=== PATIENT | female | born 1940 | race Caucasian/White ===

== ENCOUNTER → 2016-08-23 | Day surgery (SDC) | payer OTHER ==
--- NOTE | 2016-08-24 15:00 | PATH ---
Surgical Pathology Report Patient Name: JENNIFER CHANDLER [facility]. Rec. #: [id number] /Age/Gender: 1940 (Age: 76) / F Account: [id number] Location: [facility] Taken: 08/23/2016 Received: 08/23/2016 Reported: 08/24/2016 Physicians: Lam Barron M.D. Specimen(s) Received RIGHT BREAST SPECIMEN WITH MASS Clinical History Nonpalpable lesion Suspicious Final Diagnosis RIGHT BREAST MASS, BIOPSY: WELL TO MODERATELY DIFFERENTIATED INVASIVE DUCTAL CARCINOMA, MEASURING 0.8 CM IN LENGTH MEASURED ON THE SLIDE, WITH ASSOCIATED CALCIFICATION. Results of Estrogen Receptor (ER) and Progesterone Receptor (PA) studies performed at [facility] are as follows: ER (clone [id number] mouse monoclonal antibody by [employer]): 100% nuclear staining with strong intensity (Positive). PA (clone16 mouse monoclonal antibody by [employer]) : 0% nuclear staining (Negative). Results of Her2 and Ki-67 studies will be reported separately in an addendum. Positive and negative controls (internal if applicable) show appropriate results. Formalin fixation and cold ischemic times are within current ASCO/CAP recommendations for ER, PA and Her2 testing. Comment: Immunohistochemical stains for smooth muscle myosin heavy chain and p63 performed and interpreted at [facility] show loss of the myoepithelial cell layer in the invasive carcinoma. This case was discussed with NOHEMI Mistry of Dr. Erasto Brown's office on August 24, 2016. Also see prior specimen [id number], and prior Slide Review [id number]. Electronically Signed Tobin Spear M.D. Addendum Reported: 08/27/2016 Addendum Diagnosis Results of Her2 (IHC) & Ki-67 studies performed at [place], [place] ([id number]) are as follows: Her2 IHC (EP3 from [employer], formerly known as [id number], using [employer] Polymer Refine detection kit): 1+ NEGATIVE Ki-67: up to 20% (Intermediate proliferative index) Positive and negative controls (internal if applicable) show appropriate results. Tobin Spear M.D. Gross Description Received in formalin, labeled "right breast with mass," is a 2.5 x 2.3 x 0.3 cm aggregate of multiple larios-yellow, irregular to cylindrical portions of fibroadipose tissue. The formalin and filtered and the specimen is entirely submitted in one cassette. Time to formalin fixation: 5 minutes Total formalin fixation time: Approximately 9 hours. 08/23/201608/23/2016
== END | disposition home or self-care (01) ==
LOC: FMAMMOTONE 08:25
PROVIDERS: ATTEND Surgery Surgical Oncology
PROC: 0HBT3ZX Excision of Right Breast, Percutaneous Approach, Diagnostic (ICD-10-PCS; principal; 2016-08-23)
DX: C50.411 Malignant neoplasm of upper-outer quadrant of right female breast (principal); Z17.0 Estrogen receptor positive status [ER+]; Z85.3 Personal history of malignant neoplasm of breast
CPT/HCPCS: 19081; 88305-TC; 88341-TC; 88342-TC; A4648

== ENCOUNTER 2016-09-06 13:48 | Inpatient (IN) | payer OTHER ==
--- NOTE | 2016-09-03 14:40 | HP ---
Admitting History and Physical - Primary Care Physician PCP: Erasto Brown - Admission Chief Complaint: Recurrent right breast cancer History of Present Illness: 76 year old postmenapausal female S/P right breast wide excision sentenel node biopsy and intraop Radiation TARGIT US TRIAL. 07/2014. She had mammogram 07/2016 showing suspicious findings Right breast upper inner quadrant there were some findings on US which did not corelate with mammogram. Right breast core biopsy showed invasive ductal carcinoma. Mri breast 08/2016 showed newly diagnosed Right breast cancer and clip at 10:00. left breast negative. History Source: Patient Limitations to Obtaining History: No Limitations - Past Medical History COURT STENOGRAPHER: Yes: Migraine Cardiovascular: Yes: Hyperlipdemia Gastrointestinal: Yes: Diverticulosis, Other (Gastric ulcer with history of being treated for H. 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 - Past Surgical History Past Surgical History: Yes: Appendectomy, Tonsillectomy Additional Past Surgical History: catarct endometriosiss and fibroids Right breast wide excision sentenel node bx intraop RT/arimidex 07/2014 - Smoking History Smoking history: Former smoker Have you smoked in the past 12 months: No If you are a former smoker, when did you quit?: EARLY 68 - Alcohol/Substance Use Hx Alcohol Use: Yes (socially) Home Medications - Allergies Allergies/Adverse Reactions: Allergies Allergy/AdvReac Type Severity Reaction Status Date / Time Iodine and Iodide Containing Allergy Verified 08/05/14 09:12 Produc aspirin AdvReac Verified 08/05/14 09:13 - Home Medications Home Medications: Ambulatory Orders Acetaminophen/Caffeine/Butalb [Fioricet -] 1 tab PO Q4H PRN 08/06/14 Allopurinol [Zyloprim -] 200 mg PO HS 08/06/14 Atorvastatin Ca [Lipitor] 40 mg PO HS 08/06/14 Colchicine [Mitigare] 0.6 mg PO HS 08/06/14 Divalproex [Depakote -] 500 mg PO BID 08/06/14 Propranolol HCl [Inderal Xl] 80 mg PO BID 08/06/14 Omeprazole [Prilosec (RX)] 20 mg PO DAILY PRN 08/10/14 Oxycodone HCl/Acetaminophen [Percocet 5/325 -] 1 tab PO Q4H PRN #30 tablet 08/10 Pseudoephedrine HCl 30 mg PO DAILY 08/10/14 Family Disease History - Family Disease History Family Disease History: Other: Father (ulcer), Mother (early alzheimer and ? breast ca) Physical Examination Constitutional: Yes: Well Nourished, No Distress Breast(s): Yes: Other (Excellent cosmetic results from right breast wide excision . slight finding right 12:00 about 1 cm. No palpable adenopathy. Left breast negative) Problem List - Problems (1) Recurrent cancer of right breast Code(s): C50.911 - MALIGNANT NEOPLASM OF UNSP SITE OF RIGHT FEMALE BREAST Assessment/Plan Right total mastecetomy sentenel node biopsy possible axillary node dissection lymphoscintogram and reconstruction
[2016-09-04 10:30] VITALS: BMI 19.3
[2016-09-06] MEDS ORDERED: MEPIVACAINE HCL/PF 15 MG/ML ML ONE (14:20)
[2016-09-06] MEDS ORDERED: MIDAZOLAM HCL 2 MG/2 ML SINGLE DOSE VIAL ONE (14:20)
[2016-09-06] MEDS ORDERED: ROPIVACAINE HCL 0.5% 30ML VIAL ONE (14:20)
[2016-09-06] MEDS ORDERED: DEXAMETHASONE SOD PHOSPHATE/PF 10 MG/ML SDV ONE (14:21)
[2016-09-06] MEDS ORDERED: ZOLPIDEM TARTRATE 5 MG TABLET PO PRN (14:51)
[2016-09-06] MEDS ORDERED: ONDANSETRON 4 MG/2 ML VIAL IVPB PRN (14:51)
[2016-09-06] MEDS ORDERED: ACETAMINOPHEN 325 MG TABLET (FP) PO PRN (14:51)
[2016-09-06] MEDS ORDERED: ACETAMINOPHEN/CAFFEINE/BUTALBITAL 1 TAB PO PRN (14:53)
[2016-09-06] MEDS ORDERED: PROMETHAZINE HCL 25 MG/1 ML VIAL IVPB PRN (16:00)
[2016-09-06] MEDS ORDERED: HYDROmorphone *PCA* 10MG/50ML DISP.SYRIN PCA SCH (16:00)
[2016-09-06] MEDS ORDERED: DEXAMETHASONE SOD PHOSPHATE 4 MG/1 ML VIAL IVPUSH PRN (16:00)
[2016-09-06] MEDS ORDERED: HYDROmorphone *PCA* 10MG/50ML DISP.SYRIN PCA ONE ×2 (16:36→18:51)
[2016-09-06] MEDS: ANASTROZOLE 1 MG TABLET PO SCH (22:20)
[2016-09-06] MEDS: CEFAZOLIN 1 GM/D5W 50 ML IVPB SCH (22:20)
[2016-09-06] MEDS: DIVALPROEX SODIUM 250 MG TABLET E.C. (FP) PO SCH (22:21)
[2016-09-06] MEDS: ALLOPURINOL 100 MG TABLET (FP) PO SCH (22:21)
[2016-09-06] MEDS: PROPRANOLOL HCL 40 MG TABLET PO SCH (22:26)
[2016-09-06] MEDS: ATORVASTATIN CA 40 MG TABLET (FP) PO SCH (22:27)
[2016-09-06] MEDS: DEXTROSE 5%-0.45% SALINE 1,000 ML IV SCH (22:27)
[2016-09-07] MEDS: CEFAZOLIN 1 GM/D5W 50 ML IVPB SCH ×4 (02:54→21:00)
[2016-09-07] MEDS: LEVOTHYROXINE NA 25 MCG TABLET (FP) PO SCH (06:49)
[2016-09-07] MEDS: HEPARIN NA (PORCINE) 5,000 UNITS/ML 1ML VIAL SQ SCH ×3 (08:20→23:43)
[2016-09-07 08:57] LABS: MCH 33.5 pg (25.7-33.7); MEAN CELL VOLUME 104.7 fl (80-96); MEAN PLT VOLUME 9.6 fl (7.5-11.1); PLATELET COUNT 269 K/MM3 (134-434); RDW 14.9 % (11.6-15.6); WHITE BLOOD COUNT 17.9 K/mm3 (4.0-10.0)
[2016-09-07] MEDS: DIVALPROEX SODIUM 250 MG TABLET E.C. (FP) PO SCH ×3 (09:30→23:43)
[2016-09-07] MEDS: PROPRANOLOL HCL 40 MG TABLET PO SCH ×2 (09:41→23:44)
--- NOTE | 2016-09-07 09:44 | PN ---
Progress Note, Physician Chief Complaint: Recurrent right breast cancer S/P right total mastectomy tissue project development coordinator and alloderm History of Present Illness: patient is eating using MANAGER OF PROGRAM for pain worse in axilla, some bloody leakage around drain but functioning well. will change to tylenol # 3 this afternoon. She will decide if she wants to go home later or tomorrow depending on pain - Current Medication List Current Medications: Active Medications Acetaminophen (Tylenol -) 650 mg PO Q4H PRN PRN Reason: FEVER Acetaminophen/Butalbital/Caffeine (Fioricet -) 1 tablet PO Q4H PRN PRN Reason: HEADACHE Allopurinol (Zyloprim -) 200 mg PO HS [facility] Last Admin: 09/06/16 22:21 Dose: 200 mg Anastrozole (Arimidex -) 1 mg PO HS [facility] Last Admin: 09/06/16 22:20 Dose: 1 mg Atorvastatin Calcium (Lipitor -) 40 mg PO HS [facility] Last Admin: 09/06/16 22:27 Dose: Not Given Divalproex Sodium (Depakote -) 250 mg PO BID [facility] Last Admin: 09/07/16 09:30 Dose: 250 mg Heparin Sodium (Porcine) (Heparin -) 5,000 unit SQ BID [facility] Last Admin: 09/07/16 08:20 Dose: 5,000 unit Hydromorphone HCl (Dilaudid Insulation Board Back Tender -) 10 mg MANAGER OF PROGRAM MANAGER OF PROGRAM JERICHO PRN Reason: Protocol Stop: 09/13/16 16:01 Last Admin: 09/06/16 22:27 Dose: 10 mg Cefazolin Sodium (Ancef 1 Gm Premixed Ivpb -) 50 mls @ 100 mls/hr IVPB Q6H-IV [facility] Stop: 09/13/16 15:29 Last Admin: 09/07/16 09:30 Dose: 100 mls/hr Dextrose/Sodium Chloride (D5-1/2ns -) 1,000 mls @ 100 mls/hr IV ASDIR [facility] Last Admin: 09/06/16 22:27 Dose: 100 mls/hr Levothyroxine Sodium (Synthroid -) 25 mcg PO ACBK [facility] Last Admin: 09/07/16 06:49 Dose: Not Given Ondansetron HCl (Zofran Injection) 4 mg IVPB Q6H PRN PRN Reason: NAUSEA AND/OR VOMITING Promethazine HCl (Phenergan Injection -) 12.5 mg IVPB Q6H PRN PRN Reason: NAUSEA AND/OR VOMITING Propranolol HCl (Inderal -) 40 mg PO HS [facility] Last Admin: 09/06/16 22:26 Dose: Not Given Propranolol HCl (Inderal -) 80 mg PO DAILY [facility] Zolpidem Tartrate (Ambien -) 5 mg PO HS PRN PRN Reason: Insomnia - Objective Vital Signs: Vital Signs Temperature 98.4 F 09/07/16 06:26 Pulse Rate 74 09/07/16 06:26 Respiratory Rate 19 09/07/16 08:13 Blood Pressure 127/68 09/07/16 06:26 O2 Sat by Pulse Oximetry (%) 95 09/07/16 08:13 Constitutional: Yes: Well Nourished, No Distress Breast(s): Yes: Other (Flap viable some echymosis incision intact leakage around DANIELLE drain but functiong well dressing changed) Labs: CBC, BMP 09/07/16 07:45 Problem List - Problems (1) Recurrent cancer of right breast Code(s): C50.911 - MALIGNANT NEOPLASM OF UNSP SITE OF RIGHT FEMALE BREAST Assessment/Plan continue IV antibiotics spirometry MANAGER OF PROGRAM to be discontinued this afternoon and start tylenol #3 plan for discharge this afternoon or tomorrow morning
--- NOTE | 2016-09-07 14:50 | PN ---
Progress Note (short form) - Note Progress Note: ANESTHESIA POST-OP CHECK 76F s/p right mastectomy under general anesthesia POD #1. No acute complaints. Tolerating PO, ambulating, voiding, pain 2/10 and tolerable. Denies N/V. Vital Signs Temperature 98.1 F 09/07/16 09:42 Pulse Rate 82 09/07/16 09:42 Respiratory Rate 18 09/07/16 09:42 Blood Pressure 132/57 09/07/16 09:42 O2 Sat by Pulse Oximetry (%) 95 09/07/16 08:13 Active Medications Acetaminophen (Tylenol -) 650 mg PO Q4H PRN PRN Reason: FEVER Acetaminophen/Butalbital/Caffeine (Fioricet -) 1 tablet PO Q4H PRN PRN Reason: HEADACHE Allopurinol (Zyloprim -) 200 mg PO HS [facility] Last Admin: 09/06/16 22:21 Dose: 200 mg Anastrozole (Arimidex -) 1 mg PO HS [facility] Last Admin: 09/06/16 22:20 Dose: 1 mg Atorvastatin Calcium (Lipitor -) 40 mg PO HS [facility] Last Admin: 09/06/16 22:27 Dose: Not Given Divalproex Sodium (Depakote -) 250 mg PO BID [facility] Last Admin: 09/07/16 09:41 Dose: Not Given Heparin Sodium (Porcine) (Heparin -) 5,000 unit SQ BID [facility] Last Admin: 09/07/16 09:41 Dose: Not Given Hydromorphone HCl (Dilaudid Thread Winder -) 10 mg SKIN CARE SPECIALIST SKIN CARE SPECIALIST JERICHO PRN Reason: Protocol Stop: 09/13/16 16:01 Last Admin: 09/06/16 22:27 Dose: 10 mg Cefazolin Sodium (Ancef 1 Gm Premixed Ivpb -) 50 mls @ 100 mls/hr IVPB Q6H-IV [facility] Stop: 09/13/16 15:29 Last Admin: 09/07/16 09:30 Dose: 100 mls/hr Dextrose/Sodium Chloride (D5-1/2ns -) 1,000 mls @ 100 mls/hr IV ASDIR [facility] Last Admin: 09/06/16 22:27 Dose: 100 mls/hr Levothyroxine Sodium (Synthroid -) 25 mcg PO ACBK [facility] Last Admin: 09/07/16 06:49 Dose: Not Given Ondansetron HCl (Zofran Injection) 4 mg IVPB Q6H PRN PRN Reason: NAUSEA AND/OR VOMITING Promethazine HCl (Phenergan Injection -) 12.5 mg IVPB Q6H PRN PRN Reason: NAUSEA AND/OR VOMITING Propranolol HCl (Inderal -) 40 mg PO HS [facility] Last Admin: 09/06/16 22:26 Dose: Not Given Propranolol HCl (Inderal -) 80 mg PO DAILY [facility] Last Admin: 09/07/16 09:41 Dose: Not Given Zolpidem Tartrate (Ambien -) 5 mg PO HS PRN PRN Reason: Insomnia Gen: awake alert No apparent anesthesia complications. Pain well controlled, discontinue SKIN CARE SPECIALIST, start oral analgesics. Continue managment as per primary team.
[2016-09-07] MEDS ORDERED: HYDROmorphone HCL CARPU-JECT 1 MG/1 ML DISP.SYRIN IVPB PRN ×2 (14:51→15:05)
[2016-09-07] MEDS: DEXTROSE 5%-0.45% SALINE 1,000 ML IV SCH (15:32)
[2016-09-07] MEDS ORDERED: ACETAMINOPHEN WITH CODEINE 300MG/30MG TABLET PO PRN (16:26)
[2016-09-07] MEDS: ACETAMINOPHEN WITH CODEINE 300MG/30MG TABLET PO PRN (19:41)
[2016-09-07 23:34] VITALS: BP 126/59; PULSE 82; TEMP 98.3
[2016-09-07] MEDS ORDERED: PT OWN MED DRAWER 7, Y5N ONE (23:40)
[2016-09-07] MEDS: ANASTROZOLE 1 MG TABLET PO SCH (23:43)
[2016-09-07] MEDS: ALLOPURINOL 100 MG TABLET (FP) PO SCH (23:45)
[2016-09-07] MEDS: ATORVASTATIN CA 40 MG TABLET (FP) PO SCH (23:45)
[2016-09-08] MEDS: CEFAZOLIN 1 GM/D5W 50 ML IVPB SCH ×3 (03:11→09:43)
[2016-09-08] MEDS: LEVOTHYROXINE NA 25 MCG TABLET (FP) PO SCH (06:16)
[2016-09-08] MEDS: ACETAMINOPHEN WITH CODEINE 300MG/30MG TABLET PO PRN (06:19)
--- NOTE | 2016-09-08 07:15 | OP ---
DATE OF OPERATION: 09/06/2016 SURGEON: Faiza Estes MD AUTOMOBILE BRAKES BONDER SURGEON: NOHEMI Carrillo PREOPERATIVE DIAGNOSES: 1. Acquired right chest wall deformity status post right mastectomy. 2. Personal history of breast carcinoma. POSTOPERATIVE DIAGNOSIS: 1. Acquired right chest wall deformity status post right mastectomy. 2. Personal history of breast carcinoma. PROCEDURE: 1. Immediate right breast reconstruction utilizing a median insertion of silicone tissue crystalizer tender. 2. Acellular dermal matrix reconstruction of breast. OPERATIVE INDICATION: The patient is a 76-year-old white female who was brought to the operating room by Dr. Faiza Brown for a right mastectomy and sentinel lymph node biopsy. This dictation will be under separate cover by Dr. Brown. PROCEDURE IN DETAIL: Upon completion of the mastectomy, the wound was copiously irrigated, and hemostasis was meticulously obtained. At this point, the pectoralis major muscle was encountered. It was elevated in the usual fashion with lighted retractor and electrocautery superiorly to the 2nd rib, medially to the sternal fibers, then down to the inframammary fold elevating the pectoralis major muscle. At this point, the AlloDerm was rehydrated and brought into the field on the back table and sutured using 3-0 Vicryl suture in a running fashion along the pectoralis major muscle down along the lateral mammary fold and then a 2nd suture was begun on the medial side. At this point, a tissue crystalizer tender of Natrelle style [id number] was chosen for the reconstruction. This was placed sterilely into the subpectoral suballoderm pocket and tacked into position using 3-0 chromic sutures in interrupted fashion. The remainder of the material was brought down over the bottom of the implant and sutured to the inframammary fold. At this point, 2 drains were brought out through separate stab wounds on the lateral portion of the breast, and then copious irrigation and hemostasis was again obtained. This was then advanced and closed upon itself closing the mastectomy scar across the middle of the chest wall with a transverse incision. This was accomplished using 3-0 PDS suture on the deep tissue, 3-0 in a deep dermal fashion, and 4-0 in a subcuticular fashion. All wounds were dressed sterilely with Mastisol, Steri-Strips, and a compressive dressing with a surgery bra. She tolerated the procedure well. She was awakened, extubated, and transferred to the recovery room in satisfactory condition. FAIZA ESTES M.D. SHANNAN/[id number]
[2016-09-08] MEDS ORDERED: PT OWN MED DRAWER 7, Y5N ONE (09:16)
[2016-09-08] MEDS: DIVALPROEX SODIUM 250 MG TABLET E.C. (FP) PO SCH (09:44)
[2016-09-08] MEDS: HEPARIN NA (PORCINE) 5,000 UNITS/ML 1ML VIAL SQ SCH (09:47)
[2016-09-08] MEDS: PROPRANOLOL HCL 40 MG TABLET PO SCH (09:48)
--- NOTE | 2016-09-08 11:09 | PN ---
Progress Note, Physician Chief Complaint: Recurrent right breast cancer History of Present Illness: The patient has a history of right breast cancer and underwent a partial mastectomy and RT abut 1 year ago. She developed a recurrence found on routine screening mammography requiring completion mastectomy which was performed on with pipe finisher reconstruction. She was admitted postoperatively for pain and wound management. - Current Medication List Current Medications: Active Medications Acetaminophen (Tylenol -) 650 mg PO Q4H PRN PRN Reason: FEVER Acetaminophen/Butalbital/Caffeine (Fioricet -) 1 tablet PO Q4H PRN PRN Reason: HEADACHE Acetaminophen/Codeine Phosphate (Tylenol # 3 -) 2 tab PO Q6H PRN PRN Reason: FEVER OR PAIN Last Admin: 09/08/16 06:19 Dose: 2 tab Acetaminophen/Codeine Phosphate (Tylenol # 3 -) 1 tab PO Q4H PRN PRN Reason: FEVER OR PAIN Allopurinol (Zyloprim -) 200 mg PO [facility] Last Admin: 09/07/16 23:45 Dose: 200 mg Anastrozole (Arimidex -) 1 mg PO [facility] Last Admin: 09/07/16 23:43 Dose: 1 mg Atorvastatin Calcium (Lipitor -) 40 mg PO HS [facility] Last Admin: 09/07/16 23:45 Dose: 40 mg Divalproex Sodium (Depakote -) 250 mg PO BID [facility] Last Admin: 09/08/16 09:44 Dose: Not Given Heparin Sodium (Porcine) (Heparin -) 5,000 unit SQ BID [facility] Last Admin: 09/08/16 09:47 Dose: 5,000 unit Hydromorphone HCl (Dilaudid Injection -) 0.5 mg IVPB Q4H PRN PRN Reason: PAIN LEVEL 6-10 Cefazolin Sodium (Ancef 1 Gm Premixed Ivpb -) 50 mls @ 100 mls/hr IVPB Q6H-IV [facility] Stop: 09/13/16 15:29 Last Admin: 09/08/16 09:43 Dose: 100 mls/hr Dextrose/Sodium Chloride (D5-1/2ns -) 1,000 mls @ 100 mls/hr IV ASDIR [facility] Last Admin: 09/07/16 15:32 Dose: Not Given Levothyroxine Sodium (Synthroid -) 25 mcg PO ACBK [facility] Last Admin: 09/08/16 06:16 Dose: Not Given Ondansetron HCl (Zofran Injection) 4 mg IVPB Q6H PRN PRN Reason: NAUSEA AND/OR VOMITING Promethazine HCl (Phenergan Injection -) 12.5 mg IVPB Q6H PRN PRN Reason: NAUSEA AND/OR VOMITING Propranolol HCl (Inderal -) 40 mg PO HS [facility] Last Admin: 09/07/16 23:44 Dose: 40 mg Propranolol HCl (Inderal -) 80 mg PO DAILY [facility] Last Admin: 09/08/16 09:48 Dose: Not Given Zolpidem Tartrate (Ambien -) 5 mg PO HS PRN PRN Reason: Insomnia - Objective Vital Signs: Vital Signs Temperature 98.3 F 09/07/16 23:00 Pulse Rate 82 09/07/16 23:00 Respiratory Rate 17 09/07/16 23:00 Blood Pressure 126/59 09/07/16 23:00 O2 Sat by Pulse Oximetry (%) 96 09/08/16 09:03 Constitutional: Yes: Well Nourished, No Distress, Calm Eyes: Yes: WNL HENT: Yes: WNL Neck: Yes: WNL Cardiovascular: Yes: Regular Rate and Rhythm Respiratory: Yes: Regular, CTA Bilaterally Gastrointestinal: Yes: Normal Bowel Sounds, Soft ...Rectal Exam: Yes: Deferred Genitourinary: Yes: WNL Breast(s): Yes: Other (Wounds clean, dry, and intact. Skin flaps warm and viable. Drains functioning well.) Musculoskeletal: Yes: WNL Extremities: Yes: WNL Integumentary: Yes: WNL Wound/Incision: Yes: Clean/Dry, Well Approximated Neurological: Yes: Alert, Oriented ...Motor Strength: WNL Psychiatric: Yes: WNL Labs: CBC, BMP 09/07/16 07:45 Problem List - Problems (1) Recurrent cancer of right breast Code(s): C50.911 - MALIGNANT NEOPLASM OF UNSP SITE OF RIGHT FEMALE BREAST (2) Breast cancer, right Assessment/Plan: The patient is doing well POD#2 s/p right breast mastectomy and pipe finisher reconstruction with alloderm. She is doing well with good pain control. Skin flaps are warm and viable. Drains functioning well. She is stable for discharge today. Home on cefadroxil antibiotics and vicodin for pain. Follow up in the office in 1 week. Keep compressive bra on day and night. No bath shower until drains removed. Code(s): C50.911 - MALIGNANT NEOPLASM OF UNSP SITE OF RIGHT FEMALE BREAST Qualifiers: Breast location: upper inner quadrant of breast Patient gender: female Qualified Code(s): C50.211 - Malignant neoplasm of upper-inner quadrant of right female breast
--- NOTE | 2016-09-08 11:12 | DS ---
Physical Examination Vital Signs: Vital Signs Temperature 98.3 F 09/07/16 23:00 Pulse Rate 82 09/07/16 23:00 Respiratory Rate 17 09/07/16 23:00 Blood Pressure 126/59 09/07/16 23:00 O2 Sat by Pulse Oximetry (%) 96 09/08/16 09:03 Constitutional: Yes: Well Nourished, No Distress, Calm Eyes: Yes: WNL HENT: Yes: WNL Neck: Yes: WNL Cardiovascular: Yes: Regular Rate and Rhythm Respiratory: Yes: Regular, CTA Bilaterally Gastrointestinal: Yes: Normal Bowel Sounds, Soft ...Rectal Exam: Yes: Deferred Renal/: Yes: WNL Breast(s): Yes: Other (Right breast wound clean, dry, and intact. Skin flaps warm and viable. Drians functioning well.) Musculoskeletal: Yes: WNL Extremities: Yes: WNL Wound/Incision: Yes: Clean/Dry, Well Approximated Neurological: Yes: Alert, Oriented ...Motor Strength: WNL Psychiatric: Yes: WNL Labs: CBC, BMP 09/07/16 07:45 Discharge Summary Reason For Visit: RIGHT BREAST CA Current Active Problems Recurrent cancer of right breast (Acute) Procedures: Principal: Right breast total mastectomy with sales manager reconstruction with alloderm Hospital Course: The patient was admitted postoperatively and had good pain control and ACUTE CARE CLINICAL NURSE SPECIALIST was stopped POD#1. She was doing well and her wounds were clean, dry, and intact and she was stable for discharge by POD#2. Condition: Good - Instructions Diet, Activity, Other Instructions: Post Operative Instructions - [facility] We hope your recovery will be uneventful. For those of you who have been given general anesthesia, there is a possibility you might have some lightheadedness and possibly nausea. It is important that each patient, especially those who have had general anesthesia, follow these instructions, please: 1. Do NOT operate a motor vehicle for 24 hours. 2. Do NOT drink any alcoholic beverages for 24 hours. 3. Do NOT take any sedatives, narcotics, or tranquilizers for 24 hours unless specifically ordered by your surgeon. 4. Do NOT undertake any strenuous exercise or outside activity for 24 hours unless specifically permitted by your surgeon. 5. Eat light foods that are easy to digest. If you have any problems with nausea and vomiting, lie down and rest. If it continues, call your surgeon. 6. Call your surgeon AT ONCE if you have problems with: a. Bleeding b. Urinating c. Excessive pain or drainage d. Numbness If any problems occur, call your physician first. If you cannot reach him/her, call the Ambulatory Surgery Unit at [phone], or the Emergency Room at . Follow up with Drs. Brown / Nino in 7 days. Medication: Vicodin E-S OR Percocet 1-2 tablets every 4-6 hrs as needed for 5-7 days. Wound Care: Keep wound dry and clean for 48 hours. You may remove the dressing after 48 hours and may shower. Keep steri-strips in place until follow-up appointment No heavy lifting or strenuous activities. BREAST SURGERY INSTRUCTIONS Farhan Brown M.D., TIERA Brown M.D., TIERA Oneill M.D., FACS 1. Please call the office at to make a follow up appointment with your surgeon. This number can be also used for any urgent issues you may have. 2. Call us immediately if any of the following occur: *Bleeding from the incision or drain site (a small amount is normal) *Fever or chills *Redness and worsening tenderness around the surgical site *Drainage of pus or fluid from the incision or drain site 3. You may change the surgical dressing two (2) days after your surgery, and may shower then. If you have drains, you may shower after they have been removed, until then take a sponge bath. 4. It is normal for there to be some bruising and tenderness around the surgical site, and the breast may also be firm in this area. 5. Please wear a comfortable bra (sports or surgical bra) all day and all night until your first follow-up visit with your surgeon. 6. The pain medicine you have been prescribed may make you constipated; make sure you drink plenty of water. You may use an over the counter laxative if needed. 7. You may resume your normal diet after surgery, although you may want to avoid rich foods for the first twenty-four (24) hours after surgery. Alcoholic drinks should be avoided while taking the prescribed pain medicine. 8. You may resume normal activities as long as there is no discomfort, but do not do upper body exercises until after your follow-up appointment. Do not lift anything heavier than a large phone book. You may resume driving once you have stopped taking the prescribed pain medicine and feel comfortable doing arm movements. WEAR BRA/NO SHOWER/ EMPTY AND RECORD DANIELLE OUTPUT TWICE DAILY/ CHANGE DRESSINGS WHEN SOILED Referrals: Erasto Brown MD [Staff Physician] - King Estes MD [Staff Physician] - Disposition: HOME - Home Medications Comprehensive Discharge Medication List: Ambulatory Orders Acetaminophen/Caffeine/Butalb [Fioricet -] 1 tab PO Q4H PRN 08/06/14 Allopurinol [Zyloprim -] 200 mg PO HS 08/06/14 Atorvastatin Ca [Lipitor] 40 mg PO HS 08/06/14 Anastrozole [Arimidex -] 1 mg PO HS 09/04/16 Divalproex [Depakote -] 250 mg PO BID 09/04/16 Levothyroxine [Synthroid -] 25 mcg PO HS 09/04/16 Propranolol HCl 40 mg PO HS 09/04/16 Propranolol HCl 80 mg PO DAILY 09/04/16 Acetaminophen W/ Codeine #3 [Tylenol # 3 -] 1 - 2 tab PO Q6H PRN #30 tablet MDD 6 09/07/16 Cefadroxil 500 mg PO BID #20 capsule 09/07/16
--- NOTE | 2016-09-10 15:28 | PATH ---
Surgical Pathology Report Patient Name: JENNIFER CHANDLER [facility]. Rec. #: [id number] /Age/Gender: 1940 (Age: 76) / F Account: [id number] Location: [facility] MED-SURG Taken: 09/06/2016 Received: 09/06/2016 Reported: 09/10/2016 Physicians: Erasto Brown M.D. Specimen(s) Received A: RIGHT BREAST MASTECTOMY B: RIGHT BREAST ANTERIOR MARGIN Clinical History Right recurrent invasive breast cancer Final Diagnosis A. breast, right, total mastectomy: Invasive ductal carcinoma, moderately differentiated, (tubule score: 3/3, nuclear grade 2/3, mitotic score 1/3; total [place] score 6/9), measurING 4 mm in greatest dimension, microscopically. Invasive carcinoma is present adjacent to/ in A background of dense hyalinizing fibrosis, compatible with recurrence of prior known invasive carcinoma (see report [id number]). Surgical margins are uninvolved by carcinoma; carcinoma is aT 6 mm FROM the closest anterior margin. See also specimen B for final anterior margin. Nipple and skin are uninvolved by carcinoma. No lymphovascular invasion is identified. Prior biopsy site changes are present. Pathologic stage (rptnm): rpt1b ypNx ( "pt" stage is based on size of invasive carcinoma (8 mm) in prior core biopsy D17). see also invasive carcinoma cancer case summary below. B. breast, right, anterior margin, excision: Benign fibroadipose tissue. Comments Breast Invasive Carcinoma: Surgical Pathology Cancer Case Summary Based on AJCC/UICC TNM, 7th edition Procedure _X_ Total mastectomy (including nipple and skin) Specimen Laterality _X_ Right Tumor Size: Size of Largest Invasive Carcinoma: 8 mm in prior core biopsy D17 Tumor Focality _X_ Single focus of invasive carcinoma Macroscopic and Microscopic Extent of Tumor Skin _X_ Invasive carcinoma does not invade into the dermis or epidermis Nipple _X_ carcinoma does not involve the nipple epidermis Ductal Carcinoma In Situ (DCIS) _X_ No DCIS is present Histologic Type of Invasive Carcinoma : _x_ invasive carcinoma of no special type (ductal, not otherwise specified) Histologic Grade: ([place] Histologic Score) Tubular Differentiation _X_ Score 3 Nuclear Pleomorphism _X_ Score 2 Mitotic Rate _X_ Score 1 Overall Grade _X_ Grade 2: scores of 6 or 7 (moderately differentiated) Margins _X_ Margins uninvolved by invasive carcinoma Distance from closest margin: 6 mm anterior margin in mastectomy specimen A. Final anterior margin B is negative for carcinoma. Lymph-Vascular Invasion _X_ Not identified Pathologic Staging (pTNM) Primary Tumor (Invasive Carcinoma): pT1b Regional Lymph Nodes (pN): pNx Biomarker Studies Results of ER and CT studies performed on prior biopsy () at [facility] are as follows: ER (clone [id number] mouse monoclonal antibody by [employer]): 100 % nuclear staining with strong intensity (Positive). CT (clone16 mouse monoclonal antibody by [employer]): 0 % nuclear staining (Negative). Results of Her2 (IHC) & Ki-67 studies performed on prior biopsy ( ) at [place], [place] ( [id number]) are as follows: Her2 IHC (EP3 from [employer], formerly known as [id number], using [employer] Polymer Refine detection kit):1+ (Negative). Ki67: 20% (Intermediate). Electronically Signed Mary Matos M.D. Gross Description A. Received in formalin, labeled "right breast mastectomy," is a 305 gram, 15.0 x 13.0 x 4.0 cm. right mastectomy specimen with a short suture marking the superior aspect and a long suture marking the lateral aspect of the specimen, per the surgeon. There is a 6.5 x 3.0 cm larios, elliptical portion of skin with a 1 cm in diameter nipple present. The deep margin is inked black and the anterior soft tissue margin is inked blue. The specimen is serially sectioned from lateral to medial. Sectioning reveals a 1.6 x 1.5 x 1.3 cm indurated focus of fibrous tissue associated with a large area of hemorrhage, consistent with a previous biopsy site. A metallic clip is identified within the hemorrhage. The mass is in the upper inner quadrant (UIQ). The mass focally abuts the anterior soft tissue margin and is at 1 cm from the deep margin. There is a separate focus of firm fibrous tissue also within the UIQ, abutting the deep margin, consistent with a previous biopsy site. The remaining breast parenchyma displays multiple foci of white fibrous tissue. Sales Engagement Manager sections are submitted in 18 cassettes as follows: 1-serially sectioned nipple; 2-subareolar shave; 3-5-UIQ mass with associated hemorrhage, each with anterior soft tissue margin; 6-additional UIQ mass with anterior soft tissue margin; 7-9-UIQ separate previous biopsy cavity, each with deep margin; 10-uninvolved UIQ tissue; 11-12-lower inner quadrant; 13-14-upper outer quadrant; 15-lower outer quadrant; 16-anterior soft tissue margin; 17-skin; 18-deep margin. Time to formalin fixation: 10 minutes Total formalin fixation time: Approximately 25 hours. B. Received in formalin, labeled "anterior margin right breast," is a 6.0 x 2.8 x 1.0 cm irregular portion of fibroadipose tissue with a suture marking the biopsy cavity side, per the surgeon. The new margin is inked green and the specimen is serially sectioned. Sectioning reveals unremarkable fibroadipose tissue. The specimen is entirely and sequentially submitted in 7 cassettes. 09/07/2016 [facility]09/07/2016
--- NOTE | 2016-09-11 09:18 | OP ---
DATE OF OPERATION: 09/06/2016 PREOPERATIVE DIAGNOSIS: Recurrent right breast cancer. POSTOPERATIVE DIAGNOSIS: Recurrent right breast cancer. PROCEDURE: Right breast total mastectomy and fibre composite technician reconstruction with attempted sentinel lymph node biopsy. ANESTHESIA: General anesthesia. COMPLICATIONS: None. PRIMARY SURGEON: Erasto Brown MD MD PSYCHIATRY: NOHEMI Browne PRIMARY SURGEON FOR SUPERVISOR HOME ECONOMICS RECONSTRUCTION: Erasto Estes MD DESCRIPTION OF PROCEDURE: Briefly, the patient is a 76-year-old G6, P2, postmenopausal white female with Chinese and [place] descent. She was diagnosed with a right breast cancer back in 2014 and underwent a right breast partial mastectomy with intraoperative radiation as part of the target US trial, and the cancer was a 1.8-cm low-grade infiltrating duct cancer with 1 negative node which was ER/[place] positive and HER-2/francisco negative. She was placed on Arimidex postoperatively. She was doing well until she developed a suspicious assymetry seen in the upper inner aspect of the right breast on mammography, and stereotactic biopsy showed a recurrent infiltrating ductal cancer, moderately differentiated, ER positive, [place] negative , and HER-2/francisco negative. MRI just showed biopsy changes. She was advised on undergoing a total mastectomy since she had prior radiation, was seen by Plastic Surgery and fibre composite technician reconstruction was recommended. We decided to reattempt the sentinel lymph node biopsy. The patient was brought in for the procedure on September 06, 2016 , and underwent the lymphoscintigraphy with a periareolar injection of technetium 99 and then brought to the [facility] holding area. In the holding area, site verification was made and informed consent was obtained. She was marked preoperatively by the plastic surgeon. She was brought into the operating room, laid on the OR table in the supine position. Venodynes were placed on the lower extremities. She had 1 g of Ancef given prior to incision. Both breasts were sterilely prepped and draped in the usual fashion. Lymphazurin blue 3 mL was injected in the intradermal periareolar region of the right breast then massage was instituted. An incision was made just below the hair-bearing area of the right axilla. Dissection was undertaken, but given the prior sentinel node biopsy and wide excision, the radioactive and blue dye did not travel into the right axilla, and no sentinel nodes could be found. It was decided just to do the mastectomy given her age and low-grade tumor recurrence. The mastectomy was performed through a periareolar incision with a skin-sparing technique. An elliptical incision was made around the nipple-areolar complex and skin flaps were raised superiorly to the level of the clavicle, medially to the level of the sternum, laterally to the level of the latissimus, and inferiorly below the level of the inframammary fold. The breast was taken down of the pectoralis major muscle from medial to lateral, completely removed intact. It was oriented with a long lateral, short superior suture. Specimen radiograph showed removal of the clip and cancer in question. Hemostasis was achieved. A separate anterior margin was taken directly over the region of the cancer on the superior skin flap, and suture was placed on the specimen to twan the biopsy cavity site. It was sent separately to Pathology in formalin. The breast was weighed to allow for appropriate cosmetic result. At this point Dr. Estes became the primary surgeon and performed a direct implant reconstruction on the right side using AlloDerm. It was placed in a subpectoral location. Two Indra drains were placed around the implant and it was brought through a separate stab incision on the lateral skin flap. The wound was copiously irrigated and all the wounds were closed separately by Plastic Surgery using interrupted 3-0 deep dermal PDS suture and a running 4-0 subcuticular PDS suture. Mastisol and Steri-Strips were applied over the wound with a sterile dressing placed over this. The patient did receive a pectoral nerve block on the right side prior to surgery for postoperative pain control. She will be admitted postoperatively and placed on a EXTRUDING PRESS OPERATOR for postop pain control and for wound management. The patient was extubated at the end of the case, brought to the postanesthesia care in stable condition. All sponge and needle counts were correct at the end of the case, and estimated blood loss was about 80 mL. She was hemodynamically stable throughout. QAMAR KENDALL M.D. [id number] MTDD
== END 2016-09-08 13:15 | disposition home or self-care (01) | DRG 583 ==
LOC: FM/S 13:48
PROVIDERS: ADMIT Surgery Surgical Oncology; ATTEND Surgery Surgical Oncology
PROC: 0HTT0ZZ Resection of Right Breast, Open Approach (ICD-10-PCS; principal; 2016-09-06 15:30)
PROC: 0HHT0NZ Insertion of Tissue Expander into Right Breast, Open Approach (ICD-10-PCS; 2016-09-06 15:30)
DX: C50.911 Malignant neoplasm of unspecified site of right female breast (principal); E78.5 Hyperlipidemia, unspecified; M85.88 Other specified disorders of bone density and structure, other site; K57.90 Diverticulosis of intestine, part unspecified, without perforation or abscess without bleeding; M10.9 Gout, unspecified; M48.00 Spinal stenosis, site unspecified; M95.4 Acquired deformity of chest and rib; G43.809 Other migraine, not intractable, without status migrainosus; E88.09 Other disorders of plasma-protein metabolism, not elsewhere classified; Z87.11 Personal history of peptic ulcer disease; Z85.3 Personal history of malignant neoplasm of breast
CPT/HCPCS: 36415; 78195-TC; 85027; 88307-TC; 94010; 94760; A9541; J1644

== ENCOUNTER → 2017-08-29 | Day surgery (SDC) | payer OTHER ==
--- NOTE | 2017-08-30 15:06 | PATH ---
Surgical Pathology Report Patient Name: JENNIFER CHANDLER [facility]. Rec. #: [id number] /Age/Gender: 1940 (Age: 77) / F Account: [id number] Location: [facility] Taken: 08/29/2017 Received: 08/29/2017 Reported: 08/30/2017 Physicians: Lam Cherry M.D. Specimen(s) Received A: LEFT BREAST SPECIMEN WITH CALCIFICATIONS B: LEFT BREAST SPECIMEN WITHOUT CALCIFICATIONS Clinical History Mammographic findings: Microcalcification, suspicious Final Diagnosis A. LEFT BREAST, WITH CALCIFICATION, STEREOTACTIC NEEDLE CORE BIOPSY: SCLEROSED FIBROADENOMA WITH STROMAL CALCIFICATION, AND BENIGN BREAST TISSUE WITH FIBROCYSTIC CHANGES INCLUDING STROMAL FIBROSIS AND DUCTAL DILATATION. B. LEFT BREAST, WITHOUT CALCIFICATION, STEREOTACTIC NEEDLE CORE BIOPSY: BENIGN FATTY BREAST TISSUE. Electronically Signed Tobin Spear M.D. Gross Description A. Received in formalin, labeled "left breast specimen with calcification," are multiple larios-yellow, cylindrical portions of fibroadipose tissue measuring 2.0 x 1.5 x 0.5 cm in aggregate. The specimen is submitted in toto in one cassette. B. Received in formalin, labeled "left breast specimen without calcification," are multiple larios-yellow, cylindrical portions of fibroadipose tissue measuring 2.5 x 1.5 x 0.5 cm in aggregate. The specimen is submitted in toto in one cassette. Time to formalin fixation: 5 minutes Total formalin fixation time: Approximately 9 hours.
== END | disposition home or self-care (01) ==
LOC: FMAMMOTONE 11:24
PROVIDERS: ATTEND Surgery Surgical Oncology
PROC: 0HBU3ZX Excision of Left Breast, Percutaneous Approach, Diagnostic (ICD-10-PCS; principal; 2017-08-29)
DX: D24.2 Benign neoplasm of left breast (principal); R92.1 Mammographic calcification found on diagnostic imaging of breast; N60.32 Fibrosclerosis of left breast; N64.89 Other specified disorders of breast
CPT/HCPCS: 19081; 88305-TC

== ENCOUNTER 2017-09-19 06:49 | Day surgery (SDC) | payer OTHER ==
[2017-09-17 14:17] VITALS: BMI 18.8
[2017-09-19] MEDS ORDERED: LIDOCAINE HCL/PF 2% SDV 5ML VIAL ONE (07:23)
[2017-09-19] MEDS ORDERED: SUCCINYLCHOLINE CHLORIDE 200 MG/10 ML VIAL ONE (07:23)
[2017-09-19] MEDS ORDERED: ROCURONIUM BROMIDE 50 MG/5 ML VIAL ONE (07:23)
[2017-09-19] MEDS ORDERED: PROPOFOL 20 ML ONE ×2 (07:23)
[2017-09-19] MEDS ORDERED: LIDOCAINE HCL 1%, 10 MG/ML (20ML VIAL) ONE (07:28)
[2017-09-19] MEDS ORDERED: LIDOCAINE 1%/EPI 1:100000 (20 ML MULTI DOSE VIAL) ONE (07:28)
[2017-09-19] MEDS ORDERED: EPINEPHrine/PF 1 MG/1 ML (1:1,000) AMPULE ONE (07:28)
[2017-09-19] MEDS ORDERED: MIDAZOLAM HCL 2 MG/2 ML SINGLE DOSE VIAL ONE (07:30)
[2017-09-19] MEDS ORDERED: fentaNYL CITRATE 250 MCG/5 ML VIAL ONE (07:30)
[2017-09-19] MEDS ORDERED: ATROPINE SO4 0.4 MG/1 ML VIAL ONE (07:34)
[2017-09-19] MEDS ORDERED: ceFAZolin SODIUM 1 GM VIAL ONE ×2 (07:40→09:00)
[2017-09-19] MEDS ORDERED: GENTAMICIN SO4 80 MG/2 ML VIAL ONE (07:40)
[2017-09-19] MEDS ORDERED: DEXAMETHASONE SOD PHOSPHATE 4 MG/1 ML VIAL ONE (08:59)
[2017-09-19] MEDS ORDERED: ePHEDrine SULFATE 50 MG/1 ML AMPULE ONE (09:01)
[2017-09-19] MEDS ORDERED: DESFLURANE GAS 240 ML BOTTLE IH ONE (09:29)
[2017-09-19] MEDS ORDERED: ONDANSETRON 4 MG/2 ML VIAL ONE ×2 (09:55→10:50)
[2017-09-19] MEDS ORDERED: oxyCODONE HCL 5 MG TABLET PO PRN (11:14)
[2017-09-19] MEDS ORDERED: ONDANSETRON 4 MG/2 ML VIAL IVPUSH PRN (11:14)
[2017-09-19] MEDS ORDERED: LACTATED RINGERS SOLUTION 1,000 ML IV SCH (11:15)
[2017-09-19 12:34] VITALS: TEMP 97.8
[2017-09-19 14:03] VITALS: BP 108/55; PULSE 86
--- NOTE | 2017-09-21 16:35 | OP ---
DATE OF OPERATION: 09/19/2017 SURGEON: Faiza Estes MD CHIPS SCREEN TENDER SURGEON: NOHEMI España PREOPERATIVE DIAGNOSES: 1. 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 2. Acquired chest wall deformity post mastectomy. 3. Asymmetry of reconstructed breast. 4. Mechanical complication of breast implant. POSTOPERATIVE DIAGNOSES: 1. 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 2. Acquired chest wall deformity post mastectomy. 3. Asymmetry of reconstructed breast. 4. Mechanical complication of breast implant. OPERATIVE PROCEDURES: 1. Right breast reconstruction utilizing other technique. 2. Capsulotomy removal of right breast implant and replacement. 3. Left breast reduction mammoplasty. OPERATIVE INDICATION: The patient is a woman who underwent mastectomy for breast cancer and now presents with gross asymmetry of the chest wall requiring the above procedures. The risks and benefits of surgical versus nonsurgical, alternatives, as well as the material complications were described to the patient on multiple occasions preoperatively including today in the holding area where she was marked for incisions and discussion of her procedure again. Her was in attendance and understood. PROCEDURE IN DETAIL: The patient was taken to the operating room, and after induction of general anesthesia in the supine position, both arms were extended and padded. Venodyne boots were placed. The entire chest wall, abdomen, and flanks were prepped with ChloraPrep solution over the entire extent in the usual fashion for breast reconstruction. At this point, 1% local lidocaine anesthesia with 1:100,000 epinephrine was injected into the mastectomy scar on the right breast down through the skin into the subcutaneous tissues down to the underlying pectoralis major muscle. The pattern for the reduction mammoplasty was also injected as well as the abdominal area for harvest of reconstructed tissue. After allowing topical anesthesia and hemostasis, an incision was made down through the mastectomy scar through the dermis and through the deep dermis into the subcutaneous tissue. The pectoralis muscle was then divided along the course of the incision and the implant removed and sent for pathologic diagnosis. At this point, a capsulotomy was performed on the right breast superiorly along the upper pole and beneath the pectoralis major muscle up to and above the 2nd rib. Copious irrigation of the pocket was performed with triple antibiotic solution and then attention was turned to the left breast. Incisions were made according to the Sands pattern reduction and incised down through subcutaneous tissue creating an inferior glandular pedicle technique for breast reduction. Incisions were made and then deepened down to the deep tissue. Blocks of tissue were removed to match the opposite breast in volume and shape. An incision was then made in the lateral portion of the abdominal wall for harvest of reconstructed tissue on both sides of the abdomen. Incisions were made down deep into the subcutaneous tissue over the muscular area of the rectus in external oblique fashions. This tissue was then harvested in the usual fashion and transferred to the back table for preparation for reconstruction. It was washed, cleansed, and transferred. Tissue was then transferred to the right and left upper pole of both breasts in the superior, medial, and central portions of the right breast and the superior and medial portions of the left breast. Once this tissue was in place, an implant was chosen for the right reconstruction. A Cogo Cohesive breast implant style SCF 605 mL was placed into the right breast pocket and then advanced and closed upon itself. Attention was then turned back to the reconstructed breast. The pedicles and breast were reconstructed and reshaped using 2-0 Vicryl sutures in the deep tissue, 3-0 Monocryl in the deep tissue, and 4-0 in a subcuticular fashion. The reconstructed breast on the right was closed using 2-0 PDS sutures in the deep tissue, 3-0 Biosyn in a deep dermal fashion, and a subcuticular suture with 4-0 Biosyn in a subcuticular fashion. The donor site on the abdomen was also closed with interrupted and running sutures. All wounds were dressed sterilely with Dermabond and Steri-Strips. The patient tolerated the procedure well. She was awakened, extubated, and transferred to the recovery room in satisfactory condition. FAIZA ESTES M.D. [id number]
--- NOTE | 2017-09-23 14:12 | PATH ---
Surgical Pathology Report Patient Name: JENNIFER CHANDLER [facility]. Rec. #: [id number] /Age/Gender: 1940 (Age: 77) / F Account: [id number] Location: [facility] AMBULATORY Taken: 09/19/2017 Received: 09/19/2017 Reported: 09/23/2017 Physicians: King Estes Specimen(s) Received A: LEFT BREAST TISSUE B: RIGHT BREAST IMPLANT Clinical History History of breast cancer Final Diagnosis A. BREAST TISSUE, LEFT, EXCISION: BENIGN PREDOMINANTLY FATTY BREAST TISSUE SHOWING FAT NECROSIS. SKIN NO PATHOLOGIC FINDINGS. B. IMPLANT, RIGHT BREAST, REMOVAL: IMPLANT, DESCRIBED (GROSS EXAMINATION ONLY). Electronically Signed Mary Matos M.D. Gross Description A. Received in formalin labeled "left breast tissue," is a 97 g, 11.0 x 10.0 x 1.5 cm aggregate of multiple unoriented portions of fibroadipose tissue and larios, unremarkable skin. Sectioning reveals foci of white fibrous tissue. Delinquency Counselor sections are submitted in 3 cassettes. B. Received fresh labeled "right breast implant," is a 15.0 x 13.5 x 4.5 cm larios, intact breast implant. No soft tissue is present. No sections are submitted, gross only. 09/20/201709/20/2017
== END 2017-09-19 13:15 | disposition home or self-care (01) ==
LOC: FASU 06:49
PROVIDERS: ATTEND Plastic Surgery
PROC: 0HNT0ZZ Release Right Breast, Open Approach (ICD-10-PCS; 2017-09-19)
PROC: 0HRT0JZ Replacement of Right Breast with Synthetic Substitute, Open Approach (ICD-10-PCS; 2017-09-19)
PROC: 0HPT0JZ Removal of Synthetic Substitute from Right Breast, Open Approach (ICD-10-PCS; 2017-09-19)
PROC: 0HRT0JZ Replacement of Right Breast with Synthetic Substitute, Open Approach (ICD-10-PCS; 2017-09-19)
PROC: 0H0U0ZZ Alteration of Left Breast, Open Approach (ICD-10-PCS; 2017-09-19)
PROC: 0HRT07Z Replacement of Right Breast with Autologous Tissue Substitute, Open Approach (ICD-10-PCS; principal; 2017-09-19 09:07)
PROC: 0KBF0ZZ Excision of Right Trunk Muscle, Open Approach (ICD-10-PCS; 2017-09-19 09:07)
DX: M95.4 Acquired deformity of chest and rib (principal); Z90.13 Acquired absence of bilateral breasts and nipples; B85.3 Phthiriasis; N65.1 Disproportion of reconstructed breast; T85.41XA Breakdown (mechanical) of breast prosthesis and implant, initial encounter; Y83.8 Other surgical procedures as the cause of abnormal reaction of the patient, or of later complication, without mention of misadventure at the time of the procedure; Y92.89 Other specified places as the place of occurrence of the external cause
CPT/HCPCS: 88300-TC; 88304-TC; 94760